=== PATIENT | male | born 1975 | race Caucasian/White ===

== ENCOUNTER 2018-11-09 14:22 | Emergency (ER) | payer OTHER ==
[~2018-11-09] VITALS: Ht 182.9 cm; Wt 96.2 kg
== END 2018-11-09 15:43 | disposition home or self-care (01) ==
LOC: ER 14:22
DX: S93.491A Sprain of other ligament of right ankle, initial encounter (principal); X50.1XXA Overexertion from prolonged static or awkward postures, initial encounter; Y93.89 Activity, other specified; Y92.89 Other specified places as the place of occurrence of the external cause; Y99.8 Other external cause status